=== PATIENT | female | born 1985 | race Caucasian/White ===

== ENCOUNTER 2016-04-29 23:52 | Emergency (ER) | payer MEDICAID, OTHER ==
[~2016-04-29] VITALS: Ht 172.7 cm; Wt 90.7 kg
[~2016-04-29 23:52] MED LIST: CEPH500C2 PO; CHOL100040 PO; CLIN300C97 PO; DIVA250T4 PO; HYDR-3326 PO; IBUP-1955 PO; QUET100T PO; SULF1TAB3 PO
[2016-04-30 00:39] LABS: BASOPHILS # (AUTO) 0.1 /CMM (0.0-0.2); BASOPHILS % (AUTO) 0.6 % (0.0-2.0); DIFF TOTAL % 100 %; EOSINOPHILS % (AUTO) 0.1 % (0.0-6.0); HEMATOCRIT 44 % (33-45); HEMOGLOBIN 14.8 g/dL (11.5-14.8); LYMPHOCYTES # (AUTO) 2.7 /CMM (0.8-4.8); LYMPHOCYTES % (AUTO) 27.5 % (20.0-44.0); MEAN CORPUSCULAR HEMOGLOBIN 30 PG (26.0-33.0); MEAN CORPUSCULAR HGB CONC 34 g/dl (31.0-36.0); MEAN CORPUSCULAR VOLUME 90 fL (82-100); MONOCYTES # (AUTO) 0.8 /CMM (0.1-1.30); MONOCYTES % (AUTO) 8.2 % (2.0-12.0); NEUTROPHILS # (AUTO) 6.2 /CMM (1.8-8.9); NEUTROPHILS % (AUTO) 63.6 % (43.0-81.0); PLATELET COUNT (AUTO) 276 /CMM (150-450); RED BLOOD CELL COUNT(AUTO) 4.87 MIL/uL (4.0-5.2); WHITE BLOOD COUNT (AUTO) 9.8 K/uL (4.3-11.0)
[2016-04-30 00:51] LABS: CANNABINOID, URINE NEGATIVE (NEGATIVE); PHENCYCLIDINE SCREEN,URINE NEGATIVE (NEGATIVE)
[2016-04-30 00:54] LABS: ANION GAP 12 (5-14); CALCIUM, SERUM 9.4 mg/dL (8.5-10.1); CARBON DIOXIDE 29 mmol/L (21-32); CHLORIDE 102 mmol/L (98-107); GFR 66 mL/min (>60); GLUCOSE 106 mg/dL (74-106); POTASSIUM 3.7 mmol/L (3.5-5.1); SODIUM SERUM 139 mmol/L (136-145); UREA NITROGEN, BLOOD 17 mg/dL (7-18)
[2016-04-30 00:59] LABS: ACETAMINOPHEN 0 ug/ml (10-30); ALANINE AMINOTRANSFERASE 29 U/L (12-78); ASPARTATE AMINOTRANSFERASE 17 U/L (15-37); BILIRUBIN,DIRECT 0.1 mg/dL (0.0-0.2); BILIRUBIN,TOTAL 0.5 mg/dL (0.2-1.0); INDIRECT BILIRUBIN 0.4 mg/dL (0.0-1.1); SALICYLATE 1.7 mg/dL (2.8-20.0); TOTAL PROTEIN, SERUM 8.6 g/dL (6.4-8.2)
[2016-04-30 01:02] LABS: KETONES,URINE 1+ (NEGATIVE); LEUKOCYTE ESTERASE ,URINE NEGATIVE (NEGATIVE)
[2016-04-30 01:03] LABS: PREGNANCY TEST URINE QUAL NEGATIVE (NEGATIVE)
[2016-04-30 01:04] LABS: ADD UA MICROSCOPIC YES
[2016-04-30 01:27] LABS: ADD URINE CULTURE YES; RBC,URINE 0-2 /HPF (0-2); WBC,URINE 0-2 /HPF (0-3)
[2016-04-30] MEDS ORDERED: OLANZAPINE 10 MG VIAL IM ONE ×4 (01:27→11:00)
[2016-04-30] MEDS ORDERED: WATER FOR INJECTION,STERILE 10 ML ONE ×2 (01:28→10:57)
[2016-04-30] MEDS ORDERED: IV NS 0.9% 1,000 ML IV ONE (12:30)
[2016-04-30] MEDS ORDERED: IV SET PRIMARY PUMP SET 1 EA INFUS.SET MC ONE (13:01)
[2016-04-30] MEDS ORDERED: IV NS 0.9% 1,000 ML ONE (13:01)
[2016-04-30] MEDS ORDERED: diphenhydrAMINE HCL 50 MG/ML VIAL ONE (21:37)
[2016-04-30] MEDS ORDERED: HALOPERIDOL LACTATE INJ 5 MG/ML VIAL ONE (21:37)
[2016-04-30 21:48] VITALS: BP 98/61
[2016-04-30] MEDS ORDERED: diphenhydrAMINE HCL 50 MG/ML VIAL IM ONE (22:00)
[2016-04-30] MEDS ORDERED: HALOPERIDOL LACTATE INJ 5 MG/ML VIAL IM ONE (22:00)
== END 2016-04-30 22:46 ==
LOC: ER 23:56
DX: F29 Unspecified psychosis not due to a substance or known physiological condition (principal); F19.10 Other psychoactive substance abuse, uncomplicated; F20.9 Schizophrenia, unspecified; F17.210 Nicotine dependence, cigarettes, uncomplicated
CPT/HCPCS: 36415; 80048-TC; 80076-TC; 80305; 81000-TC; 84703-TC; 85025-TC; 87086-TC; A4606; G6038-TC; G6039-TC; G6040-TC; J1200; J1630; J3490; J7030; Z7610

== ENCOUNTER 2016-05-20 10:42 | Emergency (ER) | payer OTHER ==
[~2016-05-20] VITALS: Ht 162.6 cm; Wt 86.2 kg
[2016-05-20 11:54] LABS: BASOPHILS % (AUTO) 0.5 % (0.0-2.0); DIFF TOTAL % 100 %; EOSINOPHILS # (AUTO) 0.1 /CMM (0.0-0.7); HEMATOCRIT 41 % (33-45); HEMOGLOBIN 13.9 g/dL (11.5-14.8); LYMPHOCYTES # (AUTO) 2.6 /CMM (0.8-4.8); LYMPHOCYTES % (AUTO) 29.6 % (20.0-44.0); MEAN CORPUSCULAR HEMOGLOBIN 30 PG (26.0-33.0); MEAN CORPUSCULAR HGB CONC 34 g/dl (31.0-36.0); MEAN CORPUSCULAR VOLUME 90 fL (82-100); MONOCYTES % (AUTO) 11.5 % (2.0-12.0); NEUTROPHILS # (AUTO) 5.2 /CMM (1.8-8.9); NEUTROPHILS % (AUTO) 57.4 % (43.0-81.0); PLATELET COUNT (AUTO) 275 /CMM (150-450); RED BLOOD CELL COUNT(AUTO) 4.57 MIL/uL (4.0-5.2); WHITE BLOOD COUNT (AUTO) 8.9 K/uL (4.3-11.0)
[2016-05-20 12:01] LABS: ANION GAP 10 (5-14); CALCIUM, SERUM 9.2 mg/dL (8.5-10.1); CARBON DIOXIDE 31 mmol/L (21-32); CHLORIDE 101 mmol/L (98-107); CREATININE 0.9 mg/dL (0.6-1.3); GFR 75 mL/min (>60); GLUCOSE 94 mg/dL (74-106); POTASSIUM 3.7 mmol/L (3.5-5.1); SODIUM SERUM 138 mmol/L (136-145); UREA NITROGEN, BLOOD 13 mg/dL (7-18)
[2016-05-20] MEDS ORDERED: LORAZEPAM INJ 2 MG/ML VIAL ONE (12:03)
[2016-05-20 12:07] LABS: ACETAMINOPHEN 0 ug/ml (10-30); ALANINE AMINOTRANSFERASE 37 U/L (12-78); ALBUMIN 3.9 g/dL (3.4-5.0); ASPARTATE AMINOTRANSFERASE 28 U/L (15-37); BILIRUBIN,DIRECT 0.1 mg/dL (0.0-0.2); BILIRUBIN,TOTAL 0.4 mg/dL (0.2-1.0); INDIRECT BILIRUBIN 0.3 mg/dL (0.0-1.1)
[2016-05-20] MEDS: LORAZEPAM INJ 2 MG/ML VIAL IM ONE (12:11)
[2016-05-20 12:14] LABS: SALICYLATE 1.7 mg/dL (2.8-20.0)
[2016-05-20 12:41] LABS: KETONES,URINE Negative (NEGATIVE); LEUKOCYTE ESTERASE ,URINE Trace (NEGATIVE); PH,URINE 5.5 (5.0-8.0)
[2016-05-20 12:45] LABS: ADD UA MICROSCOPIC YES
[2016-05-20 12:55] LABS: CANNABINOID, URINE NEGATIVE (NEGATIVE); PHENCYCLIDINE SCREEN,URINE NEGATIVE (NEGATIVE)
[2016-05-20 12:57] LABS: ADD URINE CULTURE NO; RBC,URINE NONE SEEN /HPF (0-2); WBC,URINE 0-2 /HPF (0-3)
[2016-05-20 23:39] VITALS: BP 112/70
[2016-05-21] MEDS ORDERED: OLANZAPINE 10 MG VIAL IM ONE (01:53)
[2016-05-21] MEDS ORDERED: WATER FOR INJECTION,STERILE 10 ML ONE (01:54)
[2016-05-21] MEDS: OLANZAPINE 10 MG VIAL IM ONE (02:06)
== END 2016-05-21 09:46 | disposition home or self-care (01) ==
LOC: ER 10:43
DX: F24 Shared psychotic disorder (principal); F20.9 Schizophrenia, unspecified; F17.210 Nicotine dependence, cigarettes, uncomplicated; F10.20 Alcohol dependence, uncomplicated
CPT/HCPCS: 36415; 80048-TC; 80076-TC; 80305; 81000-TC; 84703-TC; 85025-TC; A4606; G0480; G6039-TC; J2060; J3490; Z7610

== ENCOUNTER 2016-08-10 00:50 | Emergency (ER) | payer OTHER ==
[~2016-08-10] VITALS: Ht 165.1 cm; Wt 104.3 kg
[2016-08-10] MEDS ORDERED: HALOPERIDOL LACTATE INJ 5 MG/ML VIAL ONE ×2 (00:52→01:48)
[2016-08-10] MEDS ORDERED: HALOPERIDOL LACTATE INJ 5 MG/ML VIAL IM ONE (01:00)
--- NOTE | 2016-08-10 01:00 | NUR ---
TO BED 7 A 30 YO FEMALE BIBRA AND PER REPORT, PATIENT "USED METH; CALLED 911 AT 10/12." UPON ARRIVAL TO ER, PATIENT WAS RESTLESS, COMBATIVE, UNABLE TO BE DIRECTED, VERBALIZING INCOMPREHESIBLE WORDS. SAFETY INITIATED. VSS. 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 AWAITING FOR ER MD NAVARRO AND WILL CONTNINUE TO MONITOR.
[2016-08-10] MEDS ORDERED: IV NS 0.9% 1,000 ML ONE (01:12)
[2016-08-10] MEDS ORDERED: IV SET PRIMARY 1 EA INFUS.SET MC ONE (01:12)
[2016-08-10] MEDS ORDERED: IV NS 0.9% 1,000 ML BAG IV ONE (01:30)
[2016-08-10 01:42] LABS: BASOPHILS % (AUTO) 0.4 % (0.0-2.0); EOSINOPHILS # (AUTO) 0.1 /CMM (0.0-0.7); EOSINOPHILS % (AUTO) 0.8 % (0.0-6.0); HEMATOCRIT 41 % (33-45); HEMOGLOBIN 13.7 g/dL (11.5-14.8); LYMPHOCYTES # (AUTO) 2.7 /CMM (0.8-4.8); LYMPHOCYTES % (AUTO) 36.7 % (20.0-44.0); MEAN CORPUSCULAR HEMOGLOBIN 31 PG (26.0-33.0); MEAN CORPUSCULAR HGB CONC 34 g/dl (31.0-36.0); MEAN CORPUSCULAR VOLUME 92 fL (82-100); MONOCYTES # (AUTO) 0.8 /CMM (0.1-1.30); MONOCYTES % (AUTO) 10.4 % (2.0-12.0); NEUTROPHILS # (AUTO) 3.8 /CMM (1.8-8.9); NEUTROPHILS % (AUTO) 51.7 % (43.0-81.0); PLATELET COUNT (AUTO) 239 /CMM (150-450); RDW COEFFICIENT OF VARIATION 13.2 (11.5-15.0); WHITE BLOOD COUNT (AUTO) 7.4 K/uL (4.3-11.0)
[2016-08-10 01:42] LABS: APPEARANCE,URINE CLOUDY (CLEAR); BILIRUBIN,URINE 1+ (NEGATIVE); BLOOD, URINE NEGATIVE Ery/uL (NEGATIVE); COLOR,URINE YELLOW (YELLOW); KETONES,URINE 1+ (NEGATIVE); LEUKOCYTE ESTERASE ,URINE 1+ (NEGATIVE); NITRITE, URINE NEGATIVE (NEGATIVE); PROTEIN,URINE TRACE mg/dl (NEGATIVE); UGLUCOSE NEGATIVE (NEGATIVE); UROBILINOGEN,URINE 0.2 EU/dL (0.2)
[2016-08-10 01:44] LABS: PREGNANCY TEST URINE QUAL NEGATIVE (NEGATIVE)
[2016-08-10 01:52] LABS: CARBON DIOXIDE 27 mmol/L (21-32); CHLORIDE 103 mmol/L (98-107); GFR 66 mL/min (>60); GLUCOSE 94 mg/dL (74-106); POTASSIUM 3.8 mmol/L (3.5-5.1); SODIUM SERUM 140 mmol/L (136-145); UREA NITROGEN, BLOOD 15 mg/dL (7-18)
[2016-08-10 01:56] LABS: ADD URINE CULTURE YES; BACTERIA,URINE Few /HPF (None Seen); RBC,URINE 0-2 /HPF (0-2); SQUAMOUS EPITHELIAL CELL,UR Moderate /HPF (None Seen)
[2016-08-10 01:57] LABS: ALANINE AMINOTRANSFERASE 28 U/L (12-78); ALBUMIN 3.8 g/dL (3.4-5.0); ALKALINE PHOSPHATASE 91 U/L (46-116); ASPARTATE AMINOTRANSFERASE 20 U/L (15-37); BILIRUBIN,DIRECT 0.1 mg/dL (0.0-0.2); BILIRUBIN,TOTAL 0.5 mg/dL (0.2-1.0); TOTAL PROTEIN, SERUM 8.1 g/dL (6.4-8.2)
[2016-08-10 01:57] LABS: CANNABINOID, URINE NEGATIVE (NEGATIVE); PHENCYCLIDINE SCREEN,URINE NEGATIVE (NEGATIVE); TRICHOMONAS,URINE Rare /HPF (None Seen)
[2016-08-10 02:00] LABS: ACETAMINOPHEN 0 ug/ml (10-30); SALICYLATE 1.8 mg/dL (2.8-20.0)
[2016-08-10 02:01] LABS: ALCOHOL, BLOOD < 3 mg/dL (0-0)
[2016-08-10] MEDS ORDERED: FLAGYL/NS RTU 500 MG/100 ML PIGGYBACK IV ONE (03:30)
[2016-08-10] MEDS ORDERED: IV SET PRIMARY PUMP SET 1 EA INFUS.SET MC ONE (03:32)
[2016-08-10] MEDS ORDERED: METRONIDAZOLE 500MG/ NS 100ML 100 ML IV ONE (03:32)
--- NOTE | 2016-08-10 05:23 | NUR ---
PATIENT IS SLEEPING COMFORTABLY AT THIS TIME. VSS.
--- NOTE | 2016-08-10 07:22 | NUR ---
Patient is resting comfortably in bed with eyes closed. Easily aroused. VSS
--- NOTE | 2016-08-10 10:57 | NUR ---
CALLED JORGE FOR PSYCH EVAL, LEFT MESSAGE ON VOICEMAIL
--- NOTE | 2016-08-10 11:01 | NUR ---
PT AWAKE, ALERT AND ORIENTED. AMBULATED TO THE BATHROOM WITH A STEADY GAIT.
--- NOTE | 2016-08-10 12:30 | NUR ---
Patient is resting comfortably in bed with eyes closed. Easily aroused. VSS
--- NOTE | 2016-08-10 13:10 | NUR ---
PATIENT WAS MOVED TO BED 15, PATIENT IS AWAKE, VSS NO ACUTE RESP/CARDIAC DISTRESS NOTED.
--- NOTE | 2016-08-10 13:40 | NUR ---
PATIENT PROVIDED FOOD AT BS
--- NOTE | 2016-08-10 14:20 | NUR ---
Patient is resting comfortably in bed with eyes closed. Easily aroused. VSS
--- NOTE | 2016-08-10 15:50 | NUR ---
DR MCKENNA AT FOR AN UPDATE AND RE-EVAL.
[2016-08-10 16:00] VITALS: BP 118/72
--- NOTE | 2016-08-10 16:01 | NUR ---
IV removed. Catheter intact and site benign. Pressure and 4x4 applied to site. No bleeding noted.Patient discharged to home in stable condition. Written and verbal after care instructions given. Patient verbalizes understanding of instruction. Patient was provided with bus token. Patient ambulates with steady gait. AAOX3.
== END 2016-08-10 16:10 | disposition home or self-care (01) ==
LOC: ER 00:52
DX: F24 Shared psychotic disorder (principal); F15.10 Other stimulant abuse, uncomplicated; F11.90 Opioid use, unspecified, uncomplicated; F20.9 Schizophrenia, unspecified; F10.20 Alcohol dependence, uncomplicated; F17.210 Nicotine dependence, cigarettes, uncomplicated; R41.82 Altered mental status, unspecified
CPT/HCPCS: 36415; 51702; 70450; 71010; 80048; 80076; 80305; 80329; 81001; 84703; 85025; 87086; 93005; 96361; 96365; 96372; 99285; 99406; A4606; G0480 ×2; J1630; J3490; J7030; Z7610; 81000-TC; G6039-TC

== ENCOUNTER 2016-11-12 07:04 | Emergency (ER) | payer OTHER ==
[~2016-11-12] VITALS: Ht 165.1 cm; Wt 81.6 kg
--- NOTE | 2016-11-12 07:04 | NUR ---
KEMI RA 89 FROM HOME,C/O HEARING VOICES TELLING HER TO HURT HER DAD AND SON
[2016-11-12 07:38] LABS: BASOPHILS % (AUTO) 0.4 % (0.0-2.0); EOSINOPHILS # (AUTO) 0.2 /CMM (0.0-0.7); EOSINOPHILS % (AUTO) 3.1 % (0.0-6.0); HEMATOCRIT 36 % (33-45); HEMOGLOBIN 12.5 g/dL (11.5-14.8); LYMPHOCYTES % (AUTO) 46.7 % (20.0-44.0); MEAN CORPUSCULAR HEMOGLOBIN 32 PG (26.0-33.0); MEAN CORPUSCULAR HGB CONC 34 g/dl (31.0-36.0); MEAN CORPUSCULAR VOLUME 92 fL (82-100); MONOCYTES # (AUTO) 0.6 /CMM (0.1-1.30); MONOCYTES % (AUTO) 9.4 % (2.0-12.0); NEUTROPHILS # (AUTO) 2.6 /CMM (1.8-8.9); NEUTROPHILS % (AUTO) 40.4 % (43.0-81.0); PLATELET COUNT (AUTO) 253 /CMM (150-450); RDW COEFFICIENT OF VARIATION 12.7 (11.5-15.0); RED BLOOD CELL COUNT(AUTO) 3.94 MIL/uL (4.0-5.2); WHITE BLOOD COUNT (AUTO) 6.3 K/uL (4.3-11.0)
[2016-11-12 07:43] LABS: ALCOHOL, BLOOD < 3 mg/dL (0-0); CALCIUM, SERUM 8.4 mg/dL (8.5-10.1); CARBON DIOXIDE 28 mmol/L (21-32); CHLORIDE 107 mmol/L (98-107); CREATININE 0.9 mg/dL (0.6-1.3); GLUCOSE 110 mg/dL (74-106); POTASSIUM 4.1 mmol/L (3.5-5.1); SODIUM SERUM 142 mmol/L (136-145); UREA NITROGEN, BLOOD 13 mg/dL (7-18)
--- NOTE | 2016-11-12 07:45 | NUR ---
URINE SAMPLE COLLECTED SENT TO LAB
[2016-11-12] MEDS ORDERED: OLANZAPINE 5 MG TABLET ONE (08:19)
[2016-11-12] MEDS ORDERED: LORAZEPAM 1 MG TABLET ONE (08:19)
--- NOTE | 2016-11-12 08:20 | NUR ---
jose de jesus holley called for eval
[2016-11-12] MEDS ORDERED: OLANZAPINE 5 MG/TAB.RAPDIS PO ONE (08:30)
[2016-11-12] MEDS ORDERED: LORAZEPAM 1 MG TABLET PO ONE (08:30)
--- NOTE | 2016-11-12 10:30 | NUR ---
ART BESIDE FOR PSYCH EVAL
--- NOTE | 2016-11-12 13:04 | NUR ---
PT ASLEEP BUT AROUSABLE TO CALL OF NAME GOES BACK TO SLEEP
--- NOTE | 2016-11-12 16:54 | NUR ---
[id number] SHAYLEE . [facility] OUTPAT[facility]
--- NOTE | 2016-11-12 17:55 | NUR ---
ART AT BEDSIDE FOR REEVAL
--- NOTE | 2016-11-12 19:12 | NUR ---
Patient discharged to home in stable condition. Written and verbal after care instructions given. Patient verbalizes understanding of instruction.
[2016-11-12 19:13] VITALS: BP 143/85
== END 2016-11-12 19:15 | disposition home or self-care (01) ==
LOC: ER 07:05
DX: F24 Shared psychotic disorder (principal); F15.10 Other stimulant abuse, uncomplicated; F20.9 Schizophrenia, unspecified; F17.200 Nicotine dependence, unspecified, uncomplicated
CPT/HCPCS: 36415; 80048; 80305; 84703; 85025; 99284; A4606; G0480; Z7610

== ENCOUNTER 2016-11-20 00:20 | Emergency (ER) | payer OTHER ==
[~2016-11-20] VITALS: Ht 170.2 cm; Wt 95.3 kg
--- NOTE | 2016-11-20 00:30 | NUR ---
To bed 8 a 31 yo female bb ra said, "i want to end myself" denies plan for si/hi. Patient with psych history. nad noted. vss. nondiaphoretic. safety measures observed.
--- NOTE | 2016-11-20 00:35 | NUR ---
residential sales representative at bedside to draw blood.
--- NOTE | 2016-11-20 00:43 | NUR ---
urine collected via clean catch.
[2016-11-20 00:50] LABS: BASOPHILS % (AUTO) 0.3 % (0.0-2.0); EOSINOPHILS # (AUTO) 0.2 /CMM (0.0-0.7); EOSINOPHILS % (AUTO) 2.2 % (0.0-6.0); HEMATOCRIT 37 % (33-45); HEMOGLOBIN 12.7 g/dL (11.5-14.8); LYMPHOCYTES # (AUTO) 3.1 /CMM (0.8-4.8); LYMPHOCYTES % (AUTO) 38.4 % (20.0-44.0); MEAN CORPUSCULAR HEMOGLOBIN 32 PG (26.0-33.0); MEAN CORPUSCULAR HGB CONC 34 g/dl (31.0-36.0); MEAN CORPUSCULAR VOLUME 93 fL (82-100); MONOCYTES # (AUTO) 0.5 /CMM (0.1-1.30); MONOCYTES % (AUTO) 6.5 % (2.0-12.0); NEUTROPHILS # (AUTO) 4.2 /CMM (1.8-8.9); NEUTROPHILS % (AUTO) 52.6 % (43.0-81.0); PLATELET COUNT (AUTO) 269 /CMM (150-450); RDW COEFFICIENT OF VARIATION 13.7 (11.5-15.0)
[2016-11-20 00:51] LABS: APPEARANCE,URINE SL CLOUDY (CLEAR); BILIRUBIN,URINE NEGATIVE (NEGATIVE); BLOOD, URINE NEGATIVE Ery/uL (NEGATIVE); COLOR,URINE YELLOW (YELLOW); KETONES,URINE NEGATIVE (NEGATIVE); LEUKOCYTE ESTERASE ,URINE NEGATIVE (NEGATIVE); NITRITE, URINE NEGATIVE (NEGATIVE); PROTEIN,URINE NEGATIVE (NEGATIVE); UGLUCOSE NEGATIVE (NEGATIVE); UROBILINOGEN,URINE 0.2 EU/dL (0.2)
[2016-11-20 00:58] LABS: PREGNANCY TEST URINE QUAL NEGATIVE (NEGATIVE)
[2016-11-20 01:05] LABS: ALANINE AMINOTRANSFERASE 46 U/L (12-78); ALBUMIN 3.5 g/dL (3.4-5.0); ALCOHOL, BLOOD < 3 mg/dL (0-0); ALKALINE PHOSPHATASE 80 U/L (46-116); ASPARTATE AMINOTRANSFERASE 21 U/L (15-37); BILIRUBIN,TOTAL 0.3 mg/dL (0.2-1.0); CALCIUM, SERUM 8.5 mg/dL (8.5-10.1); CARBON DIOXIDE 25 mmol/L (21-32); CHLORIDE 105 mmol/L (98-107); CREATININE 0.6 mg/dL (0.6-1.3); GLUCOSE 129 mg/dL (74-106); POTASSIUM 3.3 mmol/L (3.5-5.1); SODIUM SERUM 141 mmol/L (136-145); TOTAL PROTEIN, SERUM 7.1 g/dL (6.4-8.2); UREA NITROGEN, BLOOD 7 mg/dL (7-18)
[2016-11-20 01:08] LABS: ACETAMINOPHEN 0 ug/ml (10-30); SALICYLATE 1.8 mg/dL (2.8-20.0)
--- NOTE | 2016-11-20 02:26 | NUR ---
called YEISON WilburnW - for evaluation
--- NOTE | 2016-11-20 02:27 | NUR ---
The patient was instructed to stay in bed. No acute distress
--- NOTE | 2016-11-20 02:44 | NUR ---
SW Art at bedside to eval patient.
--- NOTE | 2016-11-20 03:38 | NUR ---
Patient is sleeping comfortably at this time.
--- NOTE | 2016-11-20 05:41 | NUR ---
Written and verbal after care instructions given. Patient verbalizes understanding of instruction. Patient is homeless, refused to be referred to a retirement at this time. Patient is given with information re housing retirement and food sources.
[2016-11-20 05:47] VITALS: BP 130/64
== END 2016-11-20 05:47 | disposition home or self-care (01) ==
LOC: ER 00:22
DX: F19.10 Other psychoactive substance abuse, uncomplicated (principal); F20.9 Schizophrenia, unspecified; F17.200 Nicotine dependence, unspecified, uncomplicated; F31.9 Bipolar disorder, unspecified
CPT/HCPCS: 36415; 80048; 80076; 80305; 80329; 81001; 84703; 85025; 99284; A4606; G0480 ×2; Z7610; 81000-TC

== ENCOUNTER 2016-12-13 19:11 | Emergency (ER) | payer OTHER ==
--- NOTE | 2016-12-13 19:45 | NUR ---
CALLED FOR TRIAGE; NOT IN LOBBY
--- NOTE | 2016-12-13 20:29 | NUR ---
CALLED X4; STILL NO ANSWER. INFORMED PT LEFT
== END 2016-12-13 20:30 | disposition left against medical advice (07) ==
LOC: ER 19:11
DX: Z53.21 Procedure and treatment not carried out due to patient leaving prior to being seen by health care provider (principal)